=== PATIENT | female | born 1940 | race African-American/Black ===

== ENCOUNTER 2018-11-27 01:15 | Inpatient (IN) | payer BC, OTHER ==
[2018-11-27 01:21] VITALS: BMI 21.5
--- NOTE | 2018-11-27 01:27 | PDOC ---
History of Present Illness - General Chief Complaint: Injury Stated Complaint: FALL Time Seen by Provider: 11/27/18 01:18 - History of Present Illness Initial Comments: 11/27/18 01:38 The patient is a 78 year old female with a history of HTN who presents for evaluation following a fall of unclear etiology. The patient reports that she was getting up to go to the bathroom when she fell and struck her head on the tile floor. She reports questionable LOC and states that she was having difficulty getting up from the fall due to pain in her left shoulder. She otherwise denies fevers, chills, SOB, chest pain, nausea, vomiting, abdominal pain, numbness, tingling, weakness, or changes with urination or bowel movements. Past History - Past Medical History Allergies/Adverse Reactions: Allergies Allergy/AdvReac Type Severity Reaction Status Date / Time No Known Allergies Allergy Verified 11/27/18 01:21 COPD: No - Immunization History Immunization Up to Date: Yes - Suicide/Smoking/Psychosocial Hx Smoking History: Never smoked Drug/Substance Use Hx: No Review of Systems - Review of Systems Comments:: 11/27/18 01:40 Constitutional: No fevers, chills, fatigue, malaise HEENT: Head Trauma. No Rhinorrhea, nasal congestion, visual changes Cardiovascular: No chest pain, syncope, palpitations, lightheadedness Respiratory: No Cough, SOB, Hemoptysis, Gastrointestinal: No Abdominal pain, Nausea, Vomiting, Constipation, Diarrhea, Melena Genitourinary: No Dysuria, Frequency, Urgency, Hesitancy, Hematuria, Flank pain Musculoskeletal: Left shoulder pain. No Myalgia, arthralgia Skin: No rashes, itching, bruising, pallor Neurologic: No Headache, Dizziness, Numbness, Weakness, or Tingling Psychiatric: No Hallucinations. No SI or HI *Physical Exam - Vital Signs Last Vital Signs Temp Pulse Resp BP Pulse Ox 108 H 17 158/90 98 11/27/18 01:20 11/27/18 01:20 11/27/18 01:20 11/27/18 01:20 - Physical Exam Comments: 11/27/18 01:41 General Appearance: Nourished. No Apparent Distress HEENT: EOMI, POPPY. No Pharyngeal Erythema, Tonsillar Exudate, Tonsillar Erythema Neck: No Cervical Lymphadenopathy or C-spine Tenderness. Full ROM. Respiratory/Chest: Lungs Clear, Normal Breath Sounds. No Crackles, Rales, Rhonchi, Wheezing Cardiovascular: Regular Rhythm, Regular Rate. No Murmur, Gallops, Rubs Gastrointestinal/Abdominal: Normal Bowel Sounds, Soft. No Guarding, Rebound, Tenderness Musculoskeletal: No CVA Tenderness Extremity: Normal Capillary Refill. Full ROM of the left shoulder. 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 Normal Finger to Nose and Heel to Salazar Heart Score/ECG Review #1 ECG reviewed & interpreted by me at: 03:34 General ECG Interpretation: Normal Rate, Normal Intervals, No acute ischemic changes Compared to previous ECG there are: Previous ECG unavail 11/27/18 03:34 Atrial Fibrillation with premature ventricular complexes No ST changes. HR 75 QTc 446 ED Treatment Course - LABORATORY CBC & Chemistry Diagram: 11/27/18 02:20 11/27/18 02:20 Medical Decision Making - Medical Decision Making 11/27/18 01:42 The patient is a 78 year old female with a history of HTN who presents for evaluation following a fall. Differential includes but is not limited to: Intracranial process, Cardiac, Infectious, Metabolic Derangement. The patient appears clinically well on exam. Given the patient's history and physical exam , we will obtain a cbc, cmp, troponin, ekg, UA, head and neck CT to evaluate further. We will continue to monitor and reassess while here in the ED. 11/27/18 03:49 CBC, CMP, Troponin are unremarkable. EKG demonstrates new onset afib. Head and C-spine CT were unremarkable as preliminarily read by our zoning engineer radiologist. Given the patient's head trauma we will hold off on anti- coagulation at this time. Given the patient's syncopal episode resulting in fall and new onset afib, she will require admission for further monitoring. We discussed the case with Dr. Pimentel who accepted the patient for admission. We will continue to monitor and reassess while here in the ED. The patient requests that her neurosurgeon who performed her spinal surgery at [facility] be contacted as well regarding her care. *DC/Admit/Observation/Transfer Diagnosis at time of Disposition: Afib Qualifiers: Atrial fibrillation type: unspecified Qualified Code(s): I48.91 - Unspecified atrial fibrillation Syncope Qualifiers: Syncope type: unspecified Qualified Code(s): R55 - Syncope and collapse - Discharge Dispostion Condition at time of disposition: Stable Decision to Admit order: Yes - Referrals - Patient Instructions - Post Discharge Activity
[2018-11-27] MEDS ORDERED: morphine CARPU-JECT 2 MG/1 ML DISP.SYRIN IVPUSH ONE (01:38)
--- NOTE | 2018-11-27 01:42 | PDOC ---
Attending Attestation - HPI HPI: 11/27/18 01:43 The patient is a 78 year old female, with a significant past medical history of HTN, who presents to the emergency department via EMS from [address] [place] [address] s/p fall. Patient notes to have fallen forward by unknown mechanism and was too weak to ambulate s/p fall prompting her arrival to the ED. She denies recent fevers, chills, or dizziness. She denies recent nausea, vomit , diarrhea or constipation. She denies recent dysuria, frequency, urgency or hematuria. She denies recent chest pain or shortness of breath. Allergies: NKDA Social history: Resident at [address] [place] [address]. - Physicial Exam PE: 11/27/18 01:49 GENERAL: Awake, alert, and fully oriented, in no acute distress HEAD: No signs of trauma EYES: PERRLA, EOMI, sclera anicteric, conjunctiva clear ENT: Auricles normal inspection, hearing grossly normal, nares patent, oropharynx clear without exudates. Moist mucosa NECK: Normal ROM, supple, no lymphadenopathy, JVD, or masses LUNGS: Breath sounds equal, clear to auscultation bilaterally. No wheezes, and no crackles HEART: Regular rate and rhythm, normal S1 and S2, no murmurs, rubs or gallops ABDOMEN: Soft, nontender, normoactive bowel sounds. No guarding, no rebound. No masses EXTREMITIES: +Left shoulder pain. Normal range of motion, no edema. No clubbing or cyanosis. No cords, erythema, or tenderness NEUROLOGICAL: Cranial nerves II through XII grossly intact. Normal speech SKIN: Warm, Dry, normal turgor, no rashes or lesions noted. <Leah Morton - Last Filed: 11/27/18 01:49> - Resident Resident Name: Kyler Bianchi - ED Attending Attestation I have performed the following: I have examined & evaluated the patient, The case was reviewed & discussed with the resident, I agree w/resident's findings & plan - Medical Decision Making 11/27/18 04:40 Pt comes with a fall in the assisted living facility. She is found to be in afib here. This is new onset. She is awake and alert and she is able to move about. SHe has lived at the [facility] x 3 years and she still drives around [place]. Pt states that she has no chest pain and she has no complaints. She recalls falling in the bathroom tonight. Labs normal; CPK slighrt elevation. Pt's CT scans normal: Patient Name: LEXIE OBRIEN THIS IS A PRELIMINARY REPORT FROM [facility] DATE OF SERVICE: 2018-11-27 02:39:51 IMAGES: 164 EXAM: HEAD CT WITHOUT CONTRAST HISTORY: Fall. Head trauma. COMPARISON: None. FINDINGS: Involutional changes. No acute intracranial abnormality. No hemorrhage. No visible infarct or mass. Osseous structures are intact. Impression: Chronic changes. No acute abnormality. No hemorrhage Patient Name: LEXIE OBRIEN THIS IS A PRELIMINARY REPORT FROM [facility] DATE OF SERVICE: 2018-11-27 02:34:09 IMAGES: 432 EXAM: CERVICAL SPINE CT W/O CONTR HISTORY: Patient fell COMPARISON: None. FINDINGS: Prior posterior fusion C3 through C6. There is moderate loss of height/compression of the 6 vertebral body. Slight loss of height anterior C5 vertebral body. It is possible that it is chronic but still should correlate with pain in this area. If prior scans can be obtained for comparison, it would help to confirm that the loss of height is stable and not acute. No other cervical spine fracture or malalignment. 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 Impression: Status post multilevel posterior cervical fusion. Loss of height of C6 vertebral body and to a lesser degree C5 vertebral body which may be chronic but is of indeterminate age. Recommendations as above. No other cervical spine fracture or malalignment. 11/27/18 06:37 Pt will be admitted for syncope as well as new onset afib. <Suzanne Suresh - Last Filed: 11/27/18 06:38> Attestations - Attestations 11/27/18 01:46 Documentation prepared by Leah Morton, acting as medical equipment technician for Suzanne Suresh MD. <Leah Morton - Last Filed: 11/27/18 01:49>
[2018-11-27] MEDS ORDERED: MORPHINE SULFATE 2 MG/ML VIAL ONE (02:11)
[2018-11-27 02:28] LABS: BASO % 0.2 % (0-2.0); EOS % 0.2 % (0-4.5); HEMATOCRIT 40.6 % (32.4-45.2); HEMOGLOBIN 13.6 GM/dL (10.7-15.3); LYMPH % 8.2 % (8-40); MCH 30.2 pg (25.7-33.7); MCHC 33.5 g/dl (32.0-36.0); MEAN CELL VOLUME 90.2 fl (80-96); MEAN PLT VOLUME 7.9 fl (7.5-11.1); MONO % 5.1 % (3.8-10.2); NEUT % 86.3 % (42.8-82.8); PLATELET COUNT 196 K/MM3 (134-434); RBC 4.51 M/mm3 (3.60-5.2); RDW 13.7 % (11.6-15.6); WHITE BLOOD COUNT 6.1 K/mm3 (4.0-10.0)
[2018-11-27 03:10] LABS: ALBUMIN 3.8 g/dl (3.4-5.0); ALK PHOS 125 U/L (45-117); ANION GAP 6 MMOL/L (8-16); BLOOD UREA NITROGEN 12 mg/dL (7-18); CALCIUM 10.4 mg/dL (8.5-10.1); CHLORIDE 111 mmol/L (98-107); CO2 24 mmol/L (21-32); CREATININE 0.6 mg/dL (0.55-1.3); GLUCOSE,RANDOM 92 mg/dL (74-106); SGOT/AST 23 U/L (15-37); SGPT/ALT 21 U/L (13-61); SODIUM 141 mmol/L (136-145)
[2018-11-27] MEDS ORDERED: SODIUM CHLORIDE 250 ML IV STA (04:40)
--- NOTE | 2018-11-27 09:39 | CON.NEURO ---
Consult - History of Present Illness History of Present Illness: 78 year old female, with a significant past medical history of HTN, who presents to the emergency department via EMS from [facility] s/p fall. Patient notes to have fallen forward by unknown mechanism and was too weak to ambulate s /p fall prompting her arrival to the ED. She denies recent fevers, chills, or dizziness. She denies recent nausea, vomit , diarrhea or constipation. She denies recent dysuria, frequency, urgency or hematuria. She denies recent chest pain or shortness of breath. she notes left sided wqeakness and imbalance since yesterday ( unclear time of onset) CT HD (-) found to have new onset AFIB - Smoking History Smoking history: Never smoked Home Medications - Allergies Allergies/Adverse Reactions: Allergies Allergy/AdvReac Type Severity Reaction Status Date / Time No Known Allergies Allergy Verified 11/27/18 01:21 - Home Medications Home Medications: Ambulatory Orders Losartan Potassium [Cozaar -] 50 mg PO DAILY 11/27/18 Physical Exam-Neuro Vital Signs: Vital Signs Temperature 98.9 F 11/27/18 06:02 Pulse Rate 88 11/27/18 06:02 Respiratory Rate 20 11/27/18 03:55 Blood Pressure 144/77 11/27/18 06:02 O2 Sat by Pulse Oximetry (%) 96 11/27/18 06:02 Constitutional: Yes: Well Nourished, No Distress, Calm Neck: Yes: WNL, Supple, Trachea Midline, Tenderness Cardiovascular: Yes: WNL, Regular Rate and Rhythm Respiratory: Yes: WNL, Regular, CTA Bilaterally Gastrointestinal: Yes: WNL, Normal Bowel Sounds Renal/: Yes: WNL Musculoskeletal: Yes: WNL Psychiatric: Yes: WNL, Alert, Oriented Labs: CBC, BMP 11/27/18 02:20 11/27/18 02:20 - Neuro Exam Level Of Consciousness: Yes: Alert (Awake, Alert, EOMI, LEft facial, mild LUE drift, no evidence of appendicular ataxia , no left leg drift , INC tone LEft leg and upgoing plantar L , gait not tested in ER ), Oriented to Person, Oriented to Place, Oriented to Time Speech: WNL Problem List - Problems (1) Afib Code(s): I48.91 - UNSPECIFIED ATRIAL FIBRILLATION Qualifiers: Atrial fibrillation type: unspecified Qualified Code(s): I48.91 - Unspecified atrial fibrillation (2) Syncope Code(s): R55 - SYNCOPE AND COLLAPSE Qualifiers: Syncope type: unspecified Qualified Code(s): R55 - Syncope and collapse (3) Hemiplegia affecting left nondominant side Code(s): G81.94 - HEMIPLEGIA, UNSPECIFIED AFFECTING LEFT NONDOMINANT SIDE Assessment/Plan 78 year old female, with a significant past medical history of HTN, HX of cervical spine surgery 3 years ago, who presents to the emergency department via EMS from [address] [place] [address] s/p fall. Patient notes to have fallen forward by unknown mechanism and was too weak to ambulate s/p fall prompting her arrival to the ED. She denies recent fevers, chills, or dizziness. She denies recent nausea, vomit , diarrhea or constipation. She denies recent dysuria, frequency, urgency or hematuria. She denies recent chest pain or shortness of breath. CT HD (-) found to have new onset AFIB AP : S/p fall, with new onset imbalance and left sided weakness, (F/A/Leg) suspicious for new R sided small vessel event found to have new onset AFIB check MRI BRAIN , DOPPLERS, FU CARD , ECHO ; CHADS VASC score of 4, will discuss need for AC thereafter REHAB will FU DR GALINDO
--- NOTE | 2018-11-27 09:43 | CON.CARD ---
Consult Consult Specialty:: cardio - History of Present Illness Chief Complaint: fall History of Present Illness: 78 F here with fall. pt with clear recollection of events. went to bathroom, was sitting on toilet when fell to her right side and banged R side of face. felt sudden loss of balance sensation. denies feeling LH/presyncope. denies LOC. afib noted on ER denies palpitations, chest pressure/pain, sob. fell in 2016--no falls since she says denies GIB or other bleeding or recent PUD PMH: HTN s/p spinal stenosis surgery 2016 - Smoking History Smoking history: Never smoked Home Medications - Allergies Allergies/Adverse Reactions: Allergies Allergy/AdvReac Type Severity Reaction Status Date / Time No Known Allergies Allergy Verified 11/27/18 01:21 - Home Medications Home Medications: Ambulatory Orders Losartan Potassium [Cozaar -] 50 mg PO DAILY 11/27/18 Family Disease History - Family Disease History Family History: Denies (no known cmp) Review of Systems - Review of Systems Constitutional: denies: Chills, Fever Eyes: denies: Eye Pain HENT: denies: Nasal Congestion Neck: denies: Stiffness Cardiovascular: denies: Palpitations Respiratory: denies: Orthopnea, PND Gastrointestinal: denies: Diarrhea, Rectal Bleeding Genitourinary: denies: Burning, Hematuria Musculoskeletal: denies: Muscle Pain Integumentary: denies: Rash Neurological: denies: Numbness, Seizure, Syncope Endocrine: denies: Excessive Sweating Hematology/Lymphatic: denies: Excessive Bleeding Vital Signs: Vital Signs Temperature 98.9 F 11/27/18 06:02 Pulse Rate 88 11/27/18 06:02 Respiratory Rate 20 11/27/18 03:55 Blood Pressure 144/77 11/27/18 06:02 O2 Sat by Pulse Oximetry (%) 96 11/27/18 06:02 Constitutional: Yes: Well Nourished, No Distress Eyes: No: Sclera Icterus HENT: No: Nasal Congestion Neck: No: Decreased ROM Respiratory: Yes: CTA Bilaterally. No: Accessory Muscle Use, Rales, Wheezes Gastrointestinal: Yes: Normal Bowel Sounds. No: Distention, Hepatomegaly, Palpable Mass, Tenderness Cardiovascular: Yes: Pulse Irregular JVD: No Carotid Bruit: No PMI: Non-Displaced Heart Sounds: Yes: S1, S2. No: Gallop Murmur: No: Systolic Murmur, Diastolic Murmur Musculoskeletal: Yes: Other (No kyphosis) Extremities: No: Cool, Cyanosis Edema: No Peripheral Pulses: 2+ Left Carotid, 2+ Right Carotid, 2+ Left Doralis Pedis, 2+ Right Dorsalis Pedis Integumentary: No: Jaundice Neurological: Yes: Alert, Oriented (x3) Psychiatric: No: Agitated - Other Data Labs, Other Data: CBC, BMP 11/27/18 02:20 11/27/18 02:20 Troponin, BNP 11/27/18 02:20 Troponin I 0.02 Troponin, BNP 11/27/18 02:20 Troponin I 0.02 Laboratory Tests 11/27/18 11/27/18 11/27/18 02:20 02:20 02:20 WBC 6.1 Hgb 13.6 Plt Count 196 Sodium 141 Potassium 4.0 Carbon Dioxide 24 BUN 12 Creatinine 0.6 AST 23 ALT 21 Creatine Kinase 342 H Troponin I 0.02 TSH 1.18 Assessment/Plan ECG: atrial flutter (HR 70s), PVC. NSTWAs. ? old septal LA. no old fall: -CT head unrevealing, seen by neuro--concern on exam for L hemiparesis -pt mechanism of losing balance and falling to right not likely to represent arrhythmia or other acute CV etiology of fall -no recent falls otherwise -await neuro rec.s pending review of imaging--including BP target Aflutter: -new dx -rate controlled without meds--monitor tele -CHADS VASC 4 (vs 6, if new stroke confirmed). she is candidate for AC given risk of CVA is > risk of bleeding in her, in light of no recent high falls risk per pt. -deferring type and timing of AC to neuro, pending their review of imaging (d/w' d dr russo in ER, who agrees with plan) -check echo HTN: -bp controlled -bp targets per neuro
--- NOTE | 2018-11-27 12:18 | ECHO ---
Name: LEXIE OBRIEN Exam:Adult Echocardiogram Study Date: 11/27/2018 11:01 AM Age: 78 yrs Reason For Study: A-FLUTTER Height: 70 in Weight: 150 lb BSA: 1.8 m2 MMode/2D Measurements & Calculations IVSd: 1.4 cm Ao root diam: 2.8 cm LVIDd: 3.5 cm LA dimension: 3.1 cm LVIDs: 2.1 cm LVPWd: 1.0 cm EDV(Teich): 49.2 ml LVOT diam: 1.9 cm ESV(Teich): 14.6 ml Doppler Measurements & Calculations Ao V2 max: 146.6 cm/sec LV V1 max P.4 mmHg Ao max P.6 mmHg LV V1 max: 92.8 cm/sec EDWIGE(V,D): 1.8 cm2 TR max trey: 245.7 cm/sec Med Peak E' Trey: 6.1 cm/sec TR max P.1 mmHg Lat Peak E' Trey: 7.5 cm/sec Mobile echodensity in LA appendage LA mass Procedure A complete two-dimensional transthoracic echocardiogram was performed (2D, M-mode, Doppler and color flow Doppler). Left Ventricle The left ventricle is normal in size. 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 Le ft ventricular systolic function is normal. Ejection Fraction = >70%. No regional wall motion abnormalit ies noted. Right Ventricle The right ventricle is normal size. The right ventricular systolic function is normal. Atria The left atrial size is normal. Large mobile echodensity is seen in the LA appendage suggests thrombu s. Clinical correlation is recommended. Recommend FRANSICO. Right atrial size is normal. Mitral Valve There is mild mitral annular calcification. There is mild mitral regurgitation. Tricuspid Valve The tricuspid valve is normal in structure and function. There is mild tricuspid regurgitation. Pulmo nary artery systolic pressure is at least 27 mmHg assuming RA pressure of 3 mmHg. Aortic Valve There is mild aortic sclerosis.;. No aortic regurgitation is present. Pulmonic Valve The pulmonic valve is not well visualized. Great Vessels The aortic root is normal size. Pericardium/Pleura There is no pericardial effusion. Interpretation Summary The left ventricle is normal in size. 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 No regional wall motion abnormalities noted. Ejection Fraction = >70%. The right ventricular systolic function is normal. The left atrial size is normal. Large mobile echodensity is seen in the LA appendage suggests thrombus. Clinical correlation is recom mended. Recommend FRANSICO Right atrial size is normal. There is mild mitral annular calcification. There is mild mitral regurgitation. There is mild tricuspid regurgitation. Pulmonary artery systolic pressure is at least 27 mmHg assuming RA pressure of 3 mmHg There is mild aortic sclerosis. There is no pericardial effusion. Previous study is not available for comparison Mobile echodensity in LA appendage LA mass Milton Montgomery MD 11/27/2018 12:17 PM
--- NOTE | 2018-11-27 14:19 | HP ---
Admitting History and Physical - Admission Chief Complaint: fell / left sided weakness History of Present Illness: The patient is a 78 year old female with a history of HTN who presents for evaluation following a fall of unclear etiology. The patient reports that she was getting up to go to the bathroom when she fell and struck her head on the tile floor. She reports she felt left sided weakness , and is not sure who long that has been there ... "maybe longer than today". questionable LOC ?? c/ o pain and weakness in her left shoulder- not related to fall?. She otherwise denies fevers, chills, SOB, chest pain, nausea, vomiting, abdominal pain, numbness, tingling, weakness, or changes with urination or bowel movements. History Source: Patient, Medical Record Limitations to Obtaining History: Poor Historian - Past Medical History Cardiovascular: Yes: HTN. No: AFIB Reproductive: Yes: Postmenopausal Musculoskeletal: Yes: Chronic low back pain, Other (report recent onset of some left sidede weakness (unable to provide details)) - Past Surgical History Past Surgical History: Yes: Laminectomy (multiple levels (thoracic-sacral scar)) - Smoking History Smoking history: Never smoked - Alcohol/Substance Use History of Substance Use: reports: None - Social History Usual Living Arrangement: Yes: Alone ADL: Support Services History of Recent Travel: No Home Medications - Allergies Allergies/Adverse Reactions: Allergies Allergy/AdvReac Type Severity Reaction Status Date / Time No Known Allergies Allergy Verified 11/27/18 01:21 - Home Medications Home Medications: Ambulatory Orders Losartan Potassium [Cozaar -] 50 mg PO DAILY 11/27/18 Review of Systems - Review of Systems Constitutional: reports: Weakness ("some left sided weakness" - however both shoulders "hurt " and are "weak"). denies: Chills, Fever Eyes: reports: No Symptoms HENT: reports: No Symptoms Neck: reports: No Symptoms Cardiovascular: reports: No Symptoms Respiratory: reports: No Symptoms Gastrointestinal: reports: No Symptoms Genitourinary: reports: No Symptoms Breasts: reports: No Symptoms Reported Musculoskeletal: reports: Joint Pain, Muscle Weakness Integumentary: reports: No Symptoms Neurological: reports: Pre-Existing Deficit, Syncope (??), Weakness Endocrine: reports: No Symptoms Hematology/Lymphatic: reports: No Symptoms Psychiatric: reports: No Symptoms Physical Examination Vital Signs: Vital Signs Temperature 98.9 F 11/27/18 06:02 Pulse Rate 88 11/27/18 06:02 Respiratory Rate 20 11/27/18 03:55 Blood Pressure 144/77 11/27/18 06:02 O2 Sat by Pulse Oximetry (%) 96 11/27/18 06:02 Constitutional: Yes: Well Nourished, No Distress, Calm, Other (slow speech) Eyes: Yes: Conjunctiva Clear, EOM Intact HENT: Yes: Atraumatic, Normocephalic. No: Drooling Neck: Yes: Supple, Trachea Midline Cardiovascular: Yes: Pulse Irregular Respiratory: Yes: Regular, CTA Bilaterally Gastrointestinal: Yes: Normal Bowel Sounds, Soft ...Rectal Exam: Yes: Deferred Breast(s): Yes: WNL Musculoskeletal: Yes: Muscle Weakness (left) Edema: No Peripheral Pulses WNL: Yes Integumentary: Yes: WNL Psychiatric: Yes: WNL Labs: CBC, BMP 11/27/18 02:20 11/27/18 02:20 Problem List - Problems (1) Afib Assessment/Plan: new onset ? - no prior hx patient reports has never heard the term associated with her care rate control a/c pending neuro work up to determine risk of a/c after head trauma Cardiology consult Dr Dailey Echo ordered awaiting telemetry bed Code(s): I48.91 - UNSPECIFIED ATRIAL FIBRILLATION Qualifiers: Atrial fibrillation type: unspecified Qualified Code(s): I48.91 - Unspecified atrial fibrillation (2) Fall at home Assessment/Plan: possibly 2/2 to arrhythmia - new onset a fib ?? rate Code(s): W19.XXXA - UNSPECIFIED FALL, INITIAL ENCOUNTER; Y92.009 - UNSP PLACE IN [facility] (3) HTN (hypertension) Assessment/Plan: trend BP treat as needed Code(s): I10 - ESSENTIAL (PRIMARY) HYPERTENSION (4) HTN (hypertension) Code(s): I10 - ESSENTIAL (PRIMARY) HYPERTENSION (5) Hemiplegia affecting left nondominant side Code(s): G81.94 - HEMIPLEGIA, UNSPECIFIED AFFECTING LEFT NONDOMINANT SIDE (6) Syncope Code(s): R55 - SYNCOPE AND COLLAPSE Qualifiers: Syncope type: unspecified Qualified Code(s): R55 - Syncope and collapse
--- NOTE | 2018-11-27 15:30 | EKG ---
Test Reason : Blood Pressure : / mmHG Vent. Rate : 075 BPM Atrial Rate : 117 BPM P-R Int : 000 ms QRS Dur : 080 ms QT Int : 400 ms P-R-T Axes : 000 -09 003 degrees QTc Int : 446 ms ATRIAL FIBRILLATION WITH PREMATURE VENTRICULAR OR ABERRANTLY CONDUCTED COMPLEXES MINIMAL VOLTAGE CRITERIA FOR LVH, MAY BE NORMAL VARIANT ABNORMAL ECG NO PREVIOUS ECGS AVAILABLE Confirmed by TITUS DORADO MD ([id number]) on 11/27/2018 3:30:13 PM Referred By: Confirmed By:TITUS DORADO MD
[2018-11-27] MEDS ORDERED: HEPARIN NA (PORCINE) 5,000 UNITS/ML 1ML VIAL IVPUSH PRN ×2 (16:50)
[2018-11-27] MEDS ORDERED: HEPARIN - 25,000 UNIT in SODIUM CHLORIDE 495 ML IV SCH (17:00)
[2018-11-27] MEDS ORDERED: HEPARIN INFUSION - 25,000 UNITS/500 ML INFUS.BAG IVPB ONE (17:28)
[2018-11-27 17:40] VITALS: PULSE 90
--- NOTE | 2018-11-27 21:21 | PN ---
Progress Note (short form) - Note Progress Note: Case discussed with Dr Dailey earlier in the day Patient to be transferred To [facility] at [place]. The accepting Surgeon is Dr Dalia Dailey has discussed the case with accepting MD and made arrangements for transfer order for transfer placed patient to be transferred to [facility] Problem List - Problems (1) Afib Code(s): I48.91 - UNSPECIFIED ATRIAL FIBRILLATION Qualifiers: Atrial fibrillation type: unspecified Qualified Code(s): I48.91 - Unspecified atrial fibrillation (2) Fall at home Code(s): W19.XXXA - UNSPECIFIED FALL, INITIAL ENCOUNTER; Y92.009 - UNSP PLACE IN UNSP NON-INSTITUT (PRIVATE) RESIDENCE PLACE (3) HTN (hypertension) Code(s): I10 - ESSENTIAL (PRIMARY) HYPERTENSION (4) HTN (hypertension) Code(s): I10 - ESSENTIAL (PRIMARY) HYPERTENSION (5) Hemiplegia affecting left nondominant side Code(s): G81.94 - HEMIPLEGIA, UNSPECIFIED AFFECTING LEFT NONDOMINANT SIDE (6) Syncope Code(s): R55 - SYNCOPE AND COLLAPSE Qualifiers: Syncope type: unspecified Qualified Code(s): R55 - Syncope and collapse
[2018-11-27 21:44] VITALS: BP 142/90; TEMP 100
--- NOTE | 2018-11-27 21:47 | PDOC ---
*Physical Exam - Vital Signs Last Vital Signs Temp Pulse Resp BP Pulse Ox 100.0 F H 90 16 142/90 97 11/27/18 21:30 11/27/18 21:30 11/27/18 21:30 11/27/18 21:30 11/27/18 21:30 ED Treatment Course - LABORATORY CBC & Chemistry Diagram: 11/27/18 02:20 11/27/18 02:20 - ADDITIONAL ORDERS Additional order review: 11/27/18 02:20 RBC 4.51 MCV 90.2 MCHC 33.5 RDW 13.7 MPV 7.9 Neutrophils % 86.3 H Lymphocytes % 8.2 Monocytes % 5.1 Eosinophils % 0.2 Basophils % 0.2 - Medications Given in the ED: ED Medications Discontinued Medications Generic Name Dose Route Start Last Admin Trade Name Freq PRN Reason Stop Dose Admin Sodium Chloride 250 mls @ 250 mls/hr 11/27/18 04:40 11/27/18 04:55 Normal Saline - IV 11/27/18 05:39 250 mls/hr ASDIR STA Administration Morphine Sulfate 2 mg 11/27/18 01:38 11/27/18 02:28 Morphine Injection - IVPUSH 11/27/18 01:39 2 mg ONCE ONE Administration *DC/Admit/Observation/Transfer Diagnosis at time of Disposition: Left atrial mass Afib Qualifiers: Atrial fibrillation type: unspecified Qualified Code(s): I48.91 - Unspecified atrial fibrillation Syncope Qualifiers: Syncope type: unspecified Qualified Code(s): R55 - Syncope and collapse - Discharge Dispostion Disposition: TRANSFER ACUTE CARE/OTHER HOSP Condition at time of disposition: Stable - Referrals - Patient Instructions - Post Discharge Activity - Transfer to Acute Care Facility Receiving Facility: [place] (Cardiology floor @ [facility])
--- NOTE | 2018-11-28 09:05 | PN ---
Progress Note (short form) - Note Progress Note: s: Current Medications Heparin Sodium (Porcine) (Heparin -) 1,000 unit IVPUSH PRN PRN PRN Reason: Heparin Heparin Sodium (Porcine) (Heparin -) 5,000 unit IVPUSH PRN PRN PRN Reason: Heparin Heparin Sodium (Porcine) 25, (000 unit/ Sodium Chloride) 500 mls @ 20 mls/hr IV TITR ERYN; Protocol Last Admin: 11/27/18 17:34 Dose: 1,000 unit/hr, 20 mls/hr Losartan Potassium (Cozaar -) 50 mg PO DAILY [facility] Vital Signs: Vital Signs Period Temp Pulse Resp BP Sys/Gandhi Pulse Ox Last 24 Hr 100.0 F 90-90 16-16 114-142/50-90 97-99 Constitutional: Yes: Well Nourished, No Distress Eyes: No: Sclera Icterus HENT: No: Nasal Congestion Neck: No: Decreased ROM Respiratory: Yes: CTA Bilaterally. No: Accessory Muscle Use, Rales, Wheezes Gastrointestinal: Yes: Normal Bowel Sounds. No: Distention, Hepatomegaly, Palpable Mass, Tenderness Cardiovascular: Yes: Pulse Irregular JVD: No Carotid Bruit: No PMI: Non-Displaced Heart Sounds: Yes: S1, S2. No: Gallop Murmur: No: Systolic Murmur, Diastolic Murmur Musculoskeletal: Yes: Other (No kyphosis) Extremities: No: Cool, Cyanosis Edema: No Peripheral Pulses: 2+ Left Carotid, 2+ Right Carotid, 2+ Left Doralis Pedis, 2+ Right Dorsalis Pedis Integumentary: No: Jaundice Neurological: Yes: Alert, Oriented (x3) Psychiatric: No: Agitated Assessment/Plan ECG: atrial flutter (HR 70s), PVC. NSTWAs. ? old septal OH. 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 Dalia Smallwood accepting - MRI head mult areas of infarct c/w showered event - neuro following - on heparin gtt fall: -CT head unrevealing, seen by neuro--concern on exam for L hemiparesis -mult areas of MRI head of infarct as above -no recent falls otherwise - neuro following Aflutter: -new dx -rate controlled without meds--monitor tele -CHADS VASC 4 (vs 6, if new stroke confirmed). she is candidate for AC given risk of CVA is > risk of bleeding in her, in light of no recent high falls risk per pt. -on heparin gtt HTN: -bp controlled -bp targets per neuro
[2018-11-28] MEDS ORDERED: LOSARTAN POTASSIUM 50 MG TABLET (FP) PO SCH (10:00)
== END 2018-11-27 22:45 | disposition short-term general hospital (02) | DRG 302 ==
LOC: JER 01:15 → JERBED 03:46 → OBSVTOIN 14:54
PROVIDERS: ADMIT Family Medicine; ATTEND Family Medicine
DX: I51.89 Other ill-defined heart diseases (principal); I63.442 Cerebral infarction due to embolism of left cerebellar artery; G81.94 Hemiplegia, unspecified affecting left nondominant side; I48.92 Unspecified atrial flutter; I51.3 Intracardiac thrombosis, not elsewhere classified; R55 Syncope and collapse; I48.91 Unspecified atrial fibrillation; I10 Essential (primary) hypertension; M54.5 Low back pain; W19.XXXA Unspecified fall, initial encounter; Y92.009 Unspecified place in unspecified non-institutional (private) residence as the place of occurrence of the external cause
CPT/HCPCS: 36415; 70450-TC; 70544-TC; 70547-TC; 70551-TC; 72125-TC; 73030-TC-LT-FY; 80053; 82550; 82553; 84443; 84484; 85025; 93005; 93010; 93306-TC; 99284-25; G0378; J1644

== ENCOUNTER 2020-08-12 13:00 | Inpatient (IN) | payer BC, OTHER ==
[2020-08-12] MEDS ORDERED: ACETAMINOPHEN 500 MG TABLET (FP) PO ONE (14:06)
[2020-08-12] MEDS ORDERED: LIDOCAINE 5% TOPICAL PATCH TP ONE (14:06)
[2020-08-12] MEDS ORDERED: ACETAMINOPHEN 325 MG TABLET (FP) ONE (14:13)
[2020-08-12] MEDS ORDERED: LIDOCAINE 5% TOPICAL PATCH ONE (14:14)
[2020-08-12 14:55] LABS: BASO % 0.7 % (0-2.0); EOS % 4.7 % (0-4.5); HEMATOCRIT 33.4 % (32.4-45.2); HEMOGLOBIN 10.5 GM/dL (10.7-15.3); LYMPH % 24.1 % (8-40); MCH 26.5 pg (25.7-33.7); MCHC 31.4 g/dl (32.0-36.0); MEAN CELL VOLUME 84.5 fl (80-96); MONO % 11.1 % (3.8-10.2); NEUT % 59.4 % (42.8-82.8); PLATELET COUNT 220 K/MM3 (134-434); RBC 3.96 M/mm3 (3.60-5.2); RDW 16.4 % (11.6-15.6); WHITE BLOOD COUNT 3.7 K/mm3 (4.0-10.0)
[2020-08-12 15:13] LABS: BLOOD UREA NITROGEN 12.9 mg/dL (7-18); CALCIUM 10.6 mg/dL (8.5-10.1)
[2020-08-12 15:14] LABS: ALBUMIN 3.6 g/dl (3.4-5.0)
[2020-08-12 15:17] LABS: CREATININE 0.7 mg/dL (0.55-1.3)
[2020-08-12 15:18] LABS: BILIRUBIN,TOTAL 0.9 mg/dL (0.2-1); TOT PROT 6.7 g/dl (6.4-8.2)
[2020-08-12 15:29] LABS: INR 2.09 (0.83-1.09); PROTHROMBIN TIME (PATIENT) 24.8 SEC (9.7-13.0)
[2020-08-12 15:31] LABS: ACTIVATED PTT 33.8 SECONDS (25.2-36.5)
[2020-08-12] MEDS ORDERED: FUROSEMIDE 40 MG/4 ML INJECTABLE VIAL IVPUSH ONE (15:52)
[2020-08-12] MEDS ORDERED: FUROSEMIDE 40 MG/4 ML INJECTABLE VIAL ONE (18:01)
[2020-08-12] MEDS ORDERED: ENOXAPARIN NA (PORCINE) 80 MG/0.8 ML DISP.SYRIN SQ ONE (20:22)
[2020-08-12] MEDS: ENOXAPARIN NA (PORCINE) 80 MG/0.8 ML DISP.SYRIN SQ SCH (20:40)
[2020-08-12] MEDS ORDERED: LIDOCAINE PATCH REMOVAL MC ONE (22:00)
[2020-08-13] MEDS ORDERED: ACETAMINOPHEN 325 MG TABLET (FP) ONE (01:01)
[2020-08-13] MEDS: ACETAMINOPHEN 325 MG TABLET (FP) PO PRN ×2 (01:11→23:25)
[2020-08-13] MEDS ORDERED: MINERAL OIL/PETROLAT/WATER TOPICAL CREAM 454 GM JAR TP PRN (10:37)
[2020-08-13] MEDS ORDERED: LOSARTAN POTASSIUM 50 MG TABLET ONE (11:24)
[2020-08-13] MEDS ORDERED: ENOXAPARIN NA (PORCINE) 80 MG/0.8 ML DISP.SYRIN SQ ONE (11:25)
[2020-08-13] MEDS: ENOXAPARIN NA (PORCINE) 80 MG/0.8 ML DISP.SYRIN SQ SCH ×2 (11:47→23:25)
[2020-08-13] MEDS: LOSARTAN POTASSIUM 50 MG TABLET PO SCH (11:47)
[2020-08-13 11:59] LABS: BASO % 0.9 % (0-2.0); HEMATOCRIT 35.6 % (32.4-45.2); LYMPH % 30.9 % (8-40); MCH 26.5 pg (25.7-33.7); MCHC 30.9 g/dl (32.0-36.0); MEAN CELL VOLUME 85.6 fl (80-96); MEAN PLT VOLUME 7.8 fl (7.5-11.1); MONO % 12.4 % (3.8-10.2); NEUT % 50.8 % (42.8-82.8); PLATELET COUNT 212 K/MM3 (134-434); RBC 4.15 M/mm3 (3.60-5.2); RDW 16.6 % (11.6-15.6); WHITE BLOOD COUNT 2.8 K/mm3 (4.0-10.0)
[2020-08-13 12:22] LABS: ALBUMIN 3.7 g/dl (3.4-5.0); BLOOD UREA NITROGEN 10.8 mg/dL (7-18); CALCIUM 10.8 mg/dL (8.5-10.1)
[2020-08-13 12:25] LABS: CREATININE 0.7 mg/dL (0.55-1.3)
[2020-08-13 12:26] LABS: BILIRUBIN,TOTAL 0.8 mg/dL (0.2-1); TOT PROT 6.8 g/dl (6.4-8.2)
[2020-08-14 03:47] VITALS: BMI 22.5
[2020-08-14 07:48] LABS: BASO % 0.6 % (0-2.0); EOS % 3.6 % (0-4.5); HEMOGLOBIN 10.1 GM/dL (10.7-15.3); LYMPH % 32.6 % (8-40); MCH 26.7 pg (25.7-33.7); MCHC 31.6 g/dl (32.0-36.0); MEAN CELL VOLUME 84.3 fl (80-96); MEAN PLT VOLUME 7.9 fl (7.5-11.1); MONO % 11.6 % (3.8-10.2); NEUT % 51.6 % (42.8-82.8); PLATELET COUNT 201 K/MM3 (134-434); RDW 16.8 % (11.6-15.6); WHITE BLOOD COUNT 3.5 K/mm3 (4.0-10.0)
[2020-08-14 08:01] LABS: ALBUMIN 3.3 g/dl (3.4-5.0); CALCIUM 10.6 mg/dL (8.5-10.1)
[2020-08-14 08:02] LABS: BLOOD UREA NITROGEN 13.9 mg/dL (7-18)
[2020-08-14 08:04] LABS: CREATININE 0.6 mg/dL (0.55-1.3)
[2020-08-14 08:06] LABS: BILIRUBIN,TOTAL 0.8 mg/dL (0.2-1); TOT PROT 6.1 g/dl (6.4-8.2)
[2020-08-14] MEDS ORDERED: IRON SUCROSE INJECTION 200 MG in SODIUM CHLORIDE 90 ML IVPB ONE (10:00)
[2020-08-14] MEDS: LOSARTAN POTASSIUM 50 MG TABLET PO SCH (10:34)
[2020-08-14] MEDS: ENOXAPARIN NA (PORCINE) 80 MG/0.8 ML DISP.SYRIN SQ SCH ×2 (10:34→21:38)
[2020-08-14] MEDS: ACETAMINOPHEN 325 MG TABLET (FP) PO PRN ×2 (10:36→21:38)
[2020-08-14] MEDS: LIDOCAINE 5% TOPICAL PATCH TP SCH (10:52)
[2020-08-14] MEDS ORDERED: LIDOCAINE PATCH REMOVAL MC SCH (22:00)
[2020-08-15] MEDS: ACETAMINOPHEN 325 MG TABLET (FP) PO PRN ×2 (03:36→10:14)
[2020-08-15 06:43] LABS: HEMATOCRIT 31.1 % (32.4-45.2); HEMOGLOBIN 10.1 GM/dL (10.7-15.3); LYMPH % 57.1 % (8-40); MCH 27.3 pg (25.7-33.7); MCHC 32.4 g/dl (32.0-36.0); MEAN CELL VOLUME 84.3 fl (80-96); MEAN PLT VOLUME 7.8 fl (7.5-11.1); MONO % 42.9 % (3.8-10.2); PLATELET COUNT 189 K/MM3 (134-434); RBC 3.69 M/mm3 (3.60-5.2); RDW 16.6 % (11.6-15.6); WHITE BLOOD COUNT 3.8 K/mm3 (4.0-10.0)
[2020-08-15 07:04] LABS: CALCIUM 10.4 mg/dL (8.5-10.1)
[2020-08-15 07:05] LABS: ALBUMIN 3.2 g/dl (3.4-5.0); BLOOD UREA NITROGEN 13.6 mg/dL (7-18)
[2020-08-15 07:08] LABS: CREATININE 0.6 mg/dL (0.55-1.3)
[2020-08-15 07:09] LABS: BILIRUBIN,TOTAL 0.6 mg/dL (0.2-1)
[2020-08-15] MEDS: LIDOCAINE 5% TOPICAL PATCH TP SCH ×2 (10:15→10:22)
[2020-08-15] MEDS: LOSARTAN POTASSIUM 50 MG TABLET PO SCH (10:15)
[2020-08-15] MEDS: ENOXAPARIN NA (PORCINE) 80 MG/0.8 ML DISP.SYRIN SQ SCH (10:15)
[2020-08-15 11:17] LABS: ANISOCYTOSIS 1+; MACROCYTOSIS 1+; PLATELET ESTIMATE NORMAL
[2020-08-15 14:33] VITALS: BP 123/60; PULSE 89; TEMP 97.8
== END 2020-08-15 17:15 | disposition home or self-care (01) | DRG 312 ==
LOC: JER 13:00 → JERBED 08-13 19:28 → J4S 08-13 22:35
PROVIDERS: ADMIT Internal Medicine; ATTEND Internal Medicine
DX: R55 Syncope and collapse (principal); I69.354 Hemiplegia and hemiparesis following cerebral infarction affecting left non-dominant side; D50.0 Iron deficiency anemia secondary to blood loss (chronic); S20.20XA Contusion of thorax, unspecified, initial encounter; S30.0XXA Contusion of lower back and pelvis, initial encounter; I50.9 Heart failure, unspecified; I34.0 Nonrheumatic mitral (valve) insufficiency; I36.1 Nonrheumatic tricuspid (valve) insufficiency; W19.XXXA Unspecified fall, initial encounter; Y93.9 Activity, unspecified; Y92.008 Other place in unspecified non-institutional (private) residence as the place of occurrence of the external cause; Y99.9 Unspecified external cause status; I10 Essential (primary) hypertension
CPT/HCPCS: 36415; 70450-TC; 71045-TC-FY; 71260-TC; 72125-TC; 72128-TC; 72131-TC; 72170-TC-FY; 74177-TC; 80053; 82550; 82553; 82728; 83540; 83550; 83880; 84484; 85025; 85610; 85730; 86850; 86900; 86901; 93005; 93010; 93306-TC; 93880-TC; 97116-GP; 97161-GP; 99285-25; C9803; J1756; Q9967; U0003

== ENCOUNTER 2020-11-28 15:37 | Emergency (ER) | payer BC, OTHER ==
[2020-11-28 15:45] VITALS: BP 128/66; PULSE 99; TEMP 98.2; BMI 18.6
== END 2020-11-28 23:13 | disposition home or self-care (01) ==
LOC: JERFT 15:37 → JER 15:37 → JERFT 23:13
DX: Z76.0 Encounter for issue of repeat prescription (principal)
CPT/HCPCS: 99283-25

== ENCOUNTER 2024-08-30 17:50 | Inpatient (IN) | payer OTHER ==
[2024-08-30 18:59] VITALS: BMI 21.2
[2024-08-30] MEDS ORDERED: ACETAMINOPHEN INJECTION 100 ML ONE (19:26)
[2024-08-30] MEDS: ACETAMINOPHEN 1000 MG/100 ML BAG IVPB ONE (20:48)
[2024-08-30 20:54] LABS: BASO % 0.3 % (0-2.0); HEMATOCRIT 31.3 % (32.4-45.2); HEMOGLOBIN 9.8 GM/dL (10.7-15.3); MCH 25.1 pg (25.7-33.7); MCHC 31.2 g/dl (32.0-36.0); MEAN CELL VOLUME 80.6 fl (80-96); MEAN PLT VOLUME 7.9 fl (7.5-11.1); MONO % 5.8 % (3.8-10.2); NEUT % 81.9 % (42.8-82.8); PLATELET COUNT 275 10^3/uL (134-434); RBC 3.89 M/mm3 (3.60-5.2); RDW 16.3 % (11.6-15.6); WHITE BLOOD COUNT 7.2 K/mm3 (4.0-10.0)
[2024-08-30 21:00] LABS: INR 2.48 (0.83-1.09); PROTHROMBIN TIME (PATIENT) 27.8 SEC (9.7-13.0)
[2024-08-30 21:02] LABS: ACTIVATED PTT 36.3 SECONDS (25.2-36.5)
[2024-08-30 21:19] LABS: ALBUMIN 3.8 g/dl (3.4-5.0); CALCIUM 11.9 mg/dL (8.5-10.1)
[2024-08-30 21:20] LABS: BLOOD UREA NITROGEN 34.7 mg/dL (7-18); MAGNESIUM 2.2 mg/dL (1.8-2.4)
[2024-08-30 21:23] LABS: CREATININE 1.4 mg/dL (0.55-1.3)
[2024-08-30 21:24] LABS: BILIRUBIN,TOTAL 0.9 mg/dL (0.2-1); TOT PROT 7.2 g/dl (6.4-8.2)
[2024-08-30] MEDS: SODIUM CHLORIDE 0.9% 500 ML INFUS.BAG IV ONE (21:38)
[2024-08-31] MEDS ORDERED: DEXTROSE 5%-0.45% SALINE 1,000 ML IV SCH ×2 (01:00→01:30)
[2024-08-31] MEDS ORDERED: ASPIRIN 81 MG CHEWABLE TABLETS ONE (01:39)
[2024-08-31 01:48] LABS: EPI CELLS 28 /uL (0-25.1); HYALINE CASTS 2 /uL (0-3.1); PH,URINE 5.5 (5.0-8.0); URINE APPEARANCE CLEAR; URINE BILIRUBIN NEGATIVE (NEGATIVE); URINE COLOR YELLOW; URINE GLUCOSE (UA) NEGATIVE (NEGATIVE); URINE KETONE TRACE (NEGATIVE); URINE LEUK ESTERASE NEGATIVE (NEGATIVE); URINE NITRITE POSITIVE (NEGATIVE); URINE PROTEIN 1+ (NEGATIVE); URINE RBC 12 /uL (0-23.9); URINE UROBILINOGEN 0.2 mg/dL (0.2-1.0); URINE WBC 32 /uL (0-25.8)
[2024-08-31] MEDS: DEXTROSE 5%-0.45% SALINE 1,000 ML IV SCH (01:52)
[2024-08-31] MEDS: ASPIRIN 81 MG CHEWABLE TABLETS PO ONE (01:52)
[2024-08-31 05:54] LABS: URINE BACTERIA 9.4 /uL (0-1359)
[2024-08-31 08:25] LABS: BASO % 0.5 % (0-2.0); EOS % 0.5 % (0-4.5); HEMATOCRIT 25.2 % (32.4-45.2); HEMOGLOBIN 7.7 GM/dL (10.7-15.3); LYMPH % 14.2 % (8-40); MCH 24.9 pg (25.7-33.7); MCHC 30.4 g/dl (32.0-36.0); MEAN CELL VOLUME 81.8 fl (80-96); MEAN PLT VOLUME 8.6 fl (7.5-11.1); MONO % 6.1 % (3.8-10.2); NEUT % 78.7 % (42.8-82.8); PLATELET COUNT 220 10^3/uL (134-434); RBC 3.08 M/mm3 (3.60-5.2); RDW 16.5 % (11.6-15.6)
[2024-08-31 08:39] LABS: CHLORIDE 106 mmol/L (98-107); POTASSIUM 3.4 mmol/L (3.5-5.1); SODIUM 136 mmol/L (136-145)
[2024-08-31 08:41] LABS: ANION GAP 6 mmol/L (4-13); BLOOD UREA NITROGEN 26.8 mg/dL (7-18); CO2 24 mmol/L (21-32)
[2024-08-31 08:44] LABS: CREATININE 1.3 mg/dL (0.55-1.3)
[2024-08-31 08:50] LABS: CALCIUM 9.7 mg/dL (8.5-10.1)
[2024-08-31 08:51] LABS: GLUCOSE,RANDOM 630 mg/dL (74-106)
[2024-08-31] MEDS ORDERED: LOSARTAN POTASSIUM 50 MG TABLET ONE (09:34)
[2024-08-31] MEDS: LOSARTAN POTASSIUM 50 MG TABLET PO SCH (09:35)
[2024-08-31] MEDS: MEMANTINE HCL 5 MG TABLET (UD) PO SCH (09:35)
[2024-08-31] MEDS: AMIODARONE HCL 100 MG TABLET PO SCH (09:35)
[2024-08-31] MEDS: METOPROLOL TARTRATE 25 MG TABLET (FP) PO SCH (09:35)
[2024-08-31] MEDS: CINACALCET HCL 30 MG TAB (FP) PO SCH (09:36)
[2024-08-31] MEDS: PANTOPRAZOLE 40 MG TABLET PO SCH (09:36)
[2024-08-31] MEDS ORDERED: FUROSEMIDE 40 MG TABLET (FP) PO SCH (10:00)
[2024-08-31] MEDS ORDERED: PANTOPRAZOLE 40 MG TABLET PO SCH (10:00)
[2024-08-31] MEDS: LIDOCAINE 5% TOPICAL PATCH TP SCH (10:03)
[2024-08-31] MEDS ORDERED: LIDOCAINE 5% TOPICAL PATCH ONE (10:03)
[2024-08-31] MEDS: ACETAMINOPHEN 325 MG TABLET (FP) PO PRN (10:04)
[2024-08-31] MEDS ORDERED: ACETAMINOPHEN 325 MG TABLET (FP) ONE ×2 (10:06→18:24)
[2024-08-31] MEDS: IRON SUCROSE INJECTION 300 MG in SODIUM CHLORIDE 235 ML IVPB ONE ×2 (11:52→19:44)
[2024-08-31] MEDS: D5-1/2NS+20 MEQ KCL - 20 MEQ/1,000 ML INFUS.BAG IV SCH ×2 (11:57→14:27)
[2024-08-31] MEDS ORDERED: WARFARIN NA 5 MG TABLET ONE (18:19)
[2024-08-31] MEDS: WARFARIN NA 2.5 MG TABLET PO SCH (18:20)
[2024-08-31] MEDS: LIDOCAINE PATCH REMOVAL MC SCH (22:46)
[2024-09-01 08:23] LABS: BASO % 0.5 % (0-2.0); EOS % 1.1 % (0-4.5); HEMATOCRIT 27.7 % (32.4-45.2); HEMOGLOBIN 8.6 GM/dL (10.7-15.3); LYMPH % 14.9 % (8-40); MCH 25.1 pg (25.7-33.7); MEAN PLT VOLUME 8.1 fl (7.5-11.1); MONO % 10.2 % (3.8-10.2); NEUT % 73.3 % (42.8-82.8); PLATELET COUNT 229 10^3/uL (134-434); RBC 3.42 M/mm3 (3.60-5.2); RDW 16.2 % (11.6-15.6); WHITE BLOOD COUNT 6.5 K/mm3 (4.0-10.0)
[2024-09-01 09:33] LABS: POTASSIUM 4.1 mmol/L (3.5-5.1)
[2024-09-01 09:41] LABS: BLOOD UREA NITROGEN 22.5 mg/dL (7-18); CALCIUM 10.6 mg/dL (8.5-10.1)
[2024-09-01 09:44] LABS: CREATININE 1.1 mg/dL (0.55-1.3)
[2024-09-01 19:19] LABS: INR 1.35 (0.83-1.09); PROTHROMBIN TIME (PATIENT) 15.4 SEC (9.7-13.0)
[2024-09-02 07:12] LABS: BASO % 0.3 % (0-2.0); EOS % 1.3 % (0-4.5); HEMOGLOBIN 8.5 GM/dL (10.7-15.3); LYMPH % 17.5 % (8-40); MCH 24.9 pg (25.7-33.7); MCHC 30.5 g/dl (32.0-36.0); MEAN CELL VOLUME 81.6 fl (80-96); MEAN PLT VOLUME 8.1 fl (7.5-11.1); MONO % 9.3 % (3.8-10.2); NEUT % 71.6 % (42.8-82.8); PLATELET COUNT 219 10^3/uL (134-434); RBC 3.43 M/mm3 (3.60-5.2); RDW 16.1 % (11.6-15.6); WHITE BLOOD COUNT 6.2 K/mm3 (4.0-10.0)
[2024-09-02 07:31] LABS: CALCIUM 10.3 mg/dL (8.5-10.1)
[2024-09-02 07:32] LABS: BLOOD UREA NITROGEN 15.1 mg/dL (7-18)
[2024-09-02 07:35] LABS: CREATININE 1.1 mg/dL (0.55-1.3)
[2024-09-02 07:36] LABS: POTASSIUM 4.3 mmol/L (3.5-5.1)
[2024-09-02] MEDS: D5-1/2NS+20 MEQ KCL - 20 MEQ/1,000 ML INFUS.BAG IV SCH ×2 (09:44→21:49)
[2024-09-02] MEDS: IRON SUCROSE INJECTION 300 MG in SODIUM CHLORIDE 235 ML IVPB ONE (11:39)
[2024-09-02 16:00] VITALS: RESP 18
[2024-09-02] MEDS ORDERED: ACETAMINOPHEN 325 MG TABLET (FP) PO PRN (19:45)
[2024-09-02] MEDS: METOPROLOL TARTRATE 25 MG TABLET (FP) PO SCH (21:49)
[2024-09-02] MEDS: LIDOCAINE PATCH REMOVAL MC SCH (21:50)
[2024-09-02] MEDS ORDERED: LIDOCAINE PATCH REMOVAL MC SCH (22:00)
[2024-09-03 09:10] LABS: BASO % 0.3 % (0-2.0); EOS % 1.7 % (0-4.5); HEMOGLOBIN 8.8 GM/dL (10.7-15.3); MCH 25.6 pg (25.7-33.7); MCHC 31.5 g/dl (32.0-36.0); MEAN CELL VOLUME 81.2 fl (80-96); MEAN PLT VOLUME 8.2 fl (7.5-11.1); MONO % 9.6 % (3.8-10.2); NEUT % 71.4 % (42.8-82.8); PLATELET COUNT 223 10^3/uL (134-434); RBC 3.45 M/mm3 (3.60-5.2); RDW 16.7 % (11.6-15.6)
[2024-09-03 09:27] LABS: POTASSIUM 4.9 mmol/L (3.5-5.1)
[2024-09-03 09:31] LABS: BLOOD UREA NITROGEN 14.2 mg/dL (7-18); CALCIUM 10.3 mg/dL (8.5-10.1)
[2024-09-03] MEDS: CINACALCET HCL 30 MG TAB (FP) PO SCH (10:14)
[2024-09-03] MEDS: PANTOPRAZOLE 40 MG TABLET PO SCH (10:14)
[2024-09-03] MEDS: LOSARTAN POTASSIUM 50 MG TABLET PO SCH (10:14)
[2024-09-03] MEDS: MEMANTINE HCL 5 MG TABLET (UD) PO SCH (10:15)
[2024-09-03] MEDS: AMIODARONE HCL 100 MG TABLET PO SCH (10:15)
[2024-09-03] MEDS: LIDOCAINE 5% TOPICAL PATCH TP SCH (10:15)
[2024-09-03] MEDS: WARFARIN NA 2.5 MG TABLET PO SCH (17:42)
[2024-09-04 10:39] VITALS: BP 108/70; PULSE 95; TEMP 98.2
== END 2024-09-04 11:19 | disposition home or self-care (01) | DRG 683 ==
LOC: JER 17:50 → JERBED 08-31 00:41 → J4W 08-31 23:38 → J6S 09-02 19:38
PROVIDERS: ADMIT Internal Medicine; ATTEND Internal Medicine
DX: N17.9 Acute kidney failure, unspecified (principal); I50.32 Chronic diastolic (congestive) heart failure; I69.354 Hemiplegia and hemiparesis following cerebral infarction affecting left non-dominant side; M62.82 Rhabdomyolysis; I11.0 Hypertensive heart disease with heart failure; I48.91 Unspecified atrial fibrillation; Z79.01 Long term (current) use of anticoagulants; W19.XXXA Unspecified fall, initial encounter; Y93.89 Activity, other specified; Y92.89 Other specified places as the place of occurrence of the external cause; Y99.8 Other external cause status; I34.0 Nonrheumatic mitral (valve) insufficiency
CPT/HCPCS: 0241U-QW; 36415; 70450-TC; 71045-TC-FY; 72125-TC; 72128-TC; 72131-TC; 72170-TC-FY; 73502-TC-RT-FY; 73610-TC-RT-FY; 73630-TC-RT-FY; 73700-TC-RT; 74177-TC; 80048; 80053; 81003; 82272; 82550; 82553; 82728; 82962; 83540; 83550; 83735; 84484; 85025; 85610; 85730; 86850; 86900; 86901; 87086; 87186; 93005; 93010; 97116-GP; 97162-GP; 99285-25; J0131; J1756; Q9967

== ENCOUNTER 2024-11-08 16:10 | Inpatient (IN) | payer OTHER ==
[2024-11-08] MEDS ORDERED: carBAMazepine 100 MG TAB.CHEW PO SCH (17:30)
[2024-11-08 18:49] LABS: HEMATOCRIT 43.5 % (34.1-44.9); HEMOGLOBIN 13.6 g/dL (11.2-15.7); MCHC 31.3 g/dl (32.2-35.5); MEAN CELL VOLUME 87.5 fl (79.4-94.8); MEAN PLT VOLUME 10.4 fl (9.4-12.3); PLATELET COUNT # 225 x10^3/uL (182-369); RDW 19.4 % (12.5-17.0)
[2024-11-08 19:02] LABS: INR 1.35 (0.83-1.09); PROTHROMBIN TIME (PATIENT) 14.9 SEC (9.7-13.0)
[2024-11-08 19:10] LABS: CHLORIDE 93 mmol/L (98-107); SODIUM 140 mmol/L (136-145)
[2024-11-08 19:13] LABS: ALBUMIN 4.5 g/dl (3.4-5.0); CALCIUM 11.4 mg/dL (8.5-10.1)
[2024-11-08 19:14] LABS: ANION GAP 14 mmol/L (4-13); BLOOD UREA NITROGEN 39.6 mg/dL (7-18); CO2 34 mmol/L (21-32); GLUCOSE,RANDOM 84 mg/dL (74-106); MAGNESIUM 2.1 mg/dL (1.8-2.4)
[2024-11-08 19:17] LABS: CREATININE 1.8 mg/dL (0.55-1.3); SGOT/AST 95 U/L (15-37); SGPT/ALT 20 U/L (13-61)
[2024-11-08 19:19] LABS: BILIRUBIN,TOTAL 1.4 mg/dL (0.2-1)
[2024-11-08 19:20] LABS: ALK PHOS 78 U/L (45-117); TOT PROT 7.7 g/dl (6.4-8.2)
[2024-11-08 19:33] LABS: LACTIC ACID 3.9 mmol/L (0.4-2.0)
[2024-11-08] MEDS ORDERED: ASPIRIN 81 MG CHEWABLE TABLETS ONE (21:21)
[2024-11-08] MEDS: SODIUM CHLORIDE 0.9% 500 ML INFUS.BAG IV ONE (21:32)
[2024-11-08] MEDS: ASPIRIN 81 MG CHEWABLE TABLETS PO ONE (22:08)
[2024-11-08] MEDS ORDERED: ASPIRIN 300 MG SUPP.RECT RC ONE (23:12)
[2024-11-08] MEDS: ASPIRIN 300 MG SUPP.RECT RC ONE (23:15)
[2024-11-09 00:09] LABS: LACTIC ACID 3.1 mmol/L (0.4-2.0)
[2024-11-09] MEDS: SODIUM CHLORIDE 0.9% 500 ML INFUS.BAG IV ONE (01:00)
[2024-11-09] MEDS ORDERED: ACETAMINOPHEN 325 MG TABLET (FP) PO PRN ×2 (02:02→20:06)
[2024-11-09] MEDS ORDERED: POTASSIUM CHLORIDE ORAL LIQUID 20 MEQ/15 ML ONE (03:24)
[2024-11-09] MEDS ORDERED: PANTOPRAZOLE 40 MG TABLET PO ONE ×2 (03:24→08:52)
[2024-11-09] MEDS ORDERED: carBAMazepine 200 MG TABLET ONE ×3 (03:34→11:35)
[2024-11-09] MEDS: POTASSIUM CHLORIDE ORAL LIQUID 20 MEQ/15 ML PO ONE (03:51)
[2024-11-09] MEDS: PANTOPRAZOLE 40 MG TABLET PO SCH (03:51)
[2024-11-09] MEDS: carBAMazepine 200 MG TABLET PO SCH (03:51)
[2024-11-09] MEDS: D5-1/2NS+20 MEQ KCL - 20 MEQ/1,000 ML INFUS.BAG IV SCH ×4 (04:12→21:00)
[2024-11-09 05:02] LABS: EPI CELLS >36 /uL (0-25.1); HYALINE CASTS 3 /uL (0-3.1); URINE APPEARANCE CLOUDY; URINE BACTERIA 7445 /uL (0-1359); URINE BILIRUBIN NEGATIVE (NEGATIVE); URINE COLOR YELLOW; URINE GLUCOSE (UA) NEGATIVE (NEGATIVE); URINE KETONE TRACE (NEGATIVE); URINE LEUK ESTERASE 2+ (NEGATIVE); URINE NITRITE NEGATIVE (NEGATIVE); URINE PROTEIN 1+ (NEGATIVE); URINE RBC 48 /uL (0-23.9); URINE WBC 340 /uL (0-25.8)
[2024-11-09] MEDS ORDERED: LOSARTAN POTASSIUM 50 MG TABLET ONE (08:52)
[2024-11-09] MEDS ORDERED: METOPROLOL TARTRATE 25 MG TABLET (FP) ONE (08:52)
[2024-11-09] MEDS ORDERED: LIDOCAINE 5% TOPICAL PATCH ONE (08:53)
[2024-11-09] MEDS ORDERED: D5-1/2NS+20 MEQ KCL - 20 MEQ/1,000 ML INFUS.BAG IV SCH (08:57)
[2024-11-09] MEDS: LIDOCAINE 5% TOPICAL PATCH TP SCH (09:07)
[2024-11-09] MEDS: METOPROLOL TARTRATE 25 MG TABLET (FP) PO SCH ×2 (09:07→22:01)
[2024-11-09] MEDS: LOSARTAN POTASSIUM 50 MG TABLET PO SCH (09:07)
[2024-11-09 11:29] LABS: HEMATOCRIT 44.4 % (34.1-44.9); HEMOGLOBIN 13.7 g/dL (11.2-15.7); MCHC 30.9 g/dl (32.2-35.5); MEAN CELL VOLUME 88.4 fl (79.4-94.8); MEAN PLT VOLUME 10.3 fl (9.4-12.3); PLATELET COUNT # 167 x10^3/uL (182-369); RDW 19.6 % (12.5-17.0)
[2024-11-09 11:48] LABS: POTASSIUM 3.4 mmol/L (3.5-5.1)
[2024-11-09 11:49] LABS: CALCIUM 10.1 mg/dL (8.5-10.1)
[2024-11-09 11:53] LABS: CREATININE 1.4 mg/dL (0.55-1.3)
[2024-11-09] MEDS: SODIUM CHLORIDE 500 ML IV STA (12:46)
[2024-11-09] MEDS ORDERED: CEFTRIAXONE 1 G/50 ML PREMIX 50 ML IVPB ONE (14:05)
[2024-11-09] MEDS: CEFTRIAXONE 1 G/50 ML PREMIX 50 ML IVPB SCH (14:28)
[2024-11-09] MEDS ORDERED: NOREPINEPHRINE BITARTRATE 4 MG/4 ML ML IV ONE (14:30)
[2024-11-09] MEDS: NOREPINEPHRINE BITARTRATE 4,000 MCG in DEXTROSE 5%-WATER - 496 ML IV SCH ×2 (14:42→21:01)
[2024-11-09] MEDS: SODIUM CHLORIDE 1,000 ML IV STA (14:51)
[2024-11-09] MEDS: WARFARIN NA 2.5 MG TABLET PO SCH (18:42)
[2024-11-09] MEDS ORDERED: MUPIROCIN 2% TOPICAL OINTMENT FOR DECOLONIZATION NS SCH ×2 (22:00)
[2024-11-09] MEDS ORDERED: LIDOCAINE PATCH REMOVAL MC SCH ×2 (22:00)
[2024-11-09] MEDS ORDERED: CHLORHEXIDINE GLUCONATE 4% CLEANSER FOR DECOLONIZATION TP SCH (22:00)
[2024-11-09] MEDS: MUPIROCIN 2% TOPICAL OINTMENT FOR DECOLONIZATION NS SCH (22:01)
[2024-11-09] MEDS: CHLORHEXIDINE GLUCONATE 4% CLEANSER FOR DECOLONIZATION TP SCH (22:01)
[2024-11-10] MEDS: LACTATED RINGERS SOLUTION 1000 ML INFUS.BAG IV ONE ×2 (00:35→02:24)
[2024-11-10] MEDS: VANCOMYCIN/WATER FOR INJ (PEG) 1,000 MG/200 ML BAG IVPB ONE (01:35)
[2024-11-10] MEDS: LIDOCAINE PATCH REMOVAL MC SCH (04:53)
[2024-11-10 09:57] LABS: ABSOLUTE IMMATURE GRANULOCYTES 0.07 x10^3/uL (0.0-0.031); BASOPHILS # 0.02 x10^3/uL (0.01-0.08); EOSINOPHIL % 0.3 % (0.7-5.8); EOSINOPHILS # 0.02 x10^3/uL (0.04-0.36); HEMATOCRIT 38.8 % (34.1-44.9); HEMOGLOBIN 11.9 g/dL (11.2-15.7); MCHC 30.7 g/dl (32.2-35.5); MEAN CELL VOLUME 89.6 fl (79.4-94.8); MEAN PLT VOLUME 10.9 fl (9.4-12.3); MONOCYTE # 0.19 x10^3/uL (0.24-0.86); MONOCYTE % 2.6 % (4.7-12.5); PLATELET COUNT # 147 x10^3/uL (182-369)
[2024-11-10] MEDS: carBAMazepine 200 MG TABLET PO SCH (09:57)
[2024-11-10] MEDS: CEFTRIAXONE 1 G/50 ML PREMIX 50 ML IVPB SCH (09:57)
[2024-11-10] MEDS: PANTOPRAZOLE 40 MG TABLET PO SCH (09:58)
[2024-11-10] MEDS: LIDOCAINE 5% TOPICAL PATCH TP SCH (09:58)
[2024-11-10] MEDS ORDERED: LOSARTAN POTASSIUM 50 MG TABLET PO SCH (10:00)
[2024-11-10 10:21] LABS: POTASSIUM 3.9 mmol/L (3.5-5.1)
[2024-11-10 10:23] LABS: CALCIUM 8.8 mg/dL (8.5-10.1)
[2024-11-10 10:24] LABS: BLOOD UREA NITROGEN 22.5 mg/dL (7-18)
[2024-11-10] MEDS: LACTATED RINGERS SOLUTION 1,000 ML/1,000 ML INFUS.BAG IV STA (12:16)
[2024-11-10] MEDS: MIDODRINE HCL 5 MG TABLET PO ONE (16:22)
[2024-11-10] MEDS: LACTATED RINGERS SOLUTION 1,000 ML/1,000 ML INFUS.BAG IV ONE (16:22)
[2024-11-10] MEDS: WARFARIN NA 2.5 MG TABLET PO SCH (17:34)
[2024-11-10] MEDS: MIDODRINE HCL 5 MG TABLET PO SCH ×2 (17:35→22:07)
[2024-11-11 08:10] LABS: POTASSIUM 3.9 mmol/L (3.5-5.1)
[2024-11-11 08:24] LABS: BLOOD UREA NITROGEN 15.4 mg/dL (7-18); MAGNESIUM 1.3 mg/dL (1.8-2.4)
[2024-11-11 08:27] LABS: CREATININE 0.8 mg/dL (0.55-1.3)
[2024-11-11 08:28] LABS: PHOSPHOROUS 1.3 mg/dL (2.5-4.9)
[2024-11-11 08:29] LABS: BILIRUBIN,TOTAL 0.4 mg/dL (0.2-1)
[2024-11-11 08:31] LABS: ALBUMIN 2.4 g/dl (3.4-5.0); TOT PROT 4.8 g/dl (6.4-8.2)
[2024-11-11 09:17] LABS: HEMATOCRIT 37.6 % (34.1-44.9); HEMOGLOBIN 11.8 g/dL (11.2-15.7); MCHC 31.4 g/dl (32.2-35.5); MEAN CELL VOLUME 88.5 fl (79.4-94.8); MEAN PLT VOLUME 12.2 fl (9.4-12.3); PLATELET COUNT # 119 x10^3/uL (182-369); RDW 20.4 % (12.5-17.0)
[2024-11-11] MEDS: MAGNESIUM 1GM/D5W - 1 GM/100 ML IVPB IVPB ONE (09:45)
[2024-11-11] MEDS: NAPH,MB-DB/K PH,MBDB POWDER PACKET PO ONE (09:45)
[2024-11-11] MEDS: MAGNESIUM SULF 50% (8.12 MEQ/2 ML-1 GM VIAL) IVPB ONE (12:10)
[2024-11-11] MEDS: POTASSIUM PHOSPHATE 30 MM in SODIUM CHLORIDE 250 ML IVPB ONE (12:11)
[2024-11-11] MEDS: CHOLECALCIFEROL (VIT D3) 5000 UNITS (125 MCG) CAP PO SCH (12:11)
[2024-11-11] MEDS: MULTIVITAMINS THER W-MINERALS COMBO TABLET (FP) PO SCH (12:11)
[2024-11-11] MEDS: ASCORBIC ACID 500 MG TABLET (FP) PO SCH (12:11)
[2024-11-11] MEDS: LACTATED RINGERS SOLUTION 1,000 ML/1,000 ML INFUS.BAG IV SCH (16:30)
[2024-11-11] MEDS: ALBUMIN HUMAN 5% 500 ML IV SOLUTION IV ONE (16:55)
[2024-11-11] MEDS: MAGNESIUM SULFATE IN WATER 2 GM/50 ML IVPB IVPB SCH (21:59)
[2024-11-11] MEDS: POTASSIUM PHOSPHATE 30 MM in SODIUM CHLORIDE 500 ML IVPB ONE (23:09)
[2024-11-12] MEDS ORDERED: LIDOCAINE PATCH REMOVAL MC SCH (05:25)
[2024-11-12] MEDS ORDERED: ACETAMINOPHEN 325 MG TABLET (FP) PO PRN (05:25)
[2024-11-12 06:56] LABS: ABSOLUTE IMMATURE GRANULOCYTES 0.03 x10^3/uL (0.0-0.031); BASOPHILS # 0.01 x10^3/uL (0.01-0.08); EOSINOPHIL % 0.5 % (0.7-5.8); EOSINOPHILS # 0.03 x10^3/uL (0.04-0.36); HEMATOCRIT 32.4 % (34.1-44.9); HEMOGLOBIN 10.3 g/dL (11.2-15.7); MCHC 31.8 g/dl (32.2-35.5); MEAN PLT VOLUME 10.7 fl (9.4-12.3); PLATELET COUNT # 112 x10^3/uL (182-369); RDW 20.5 % (12.5-17.0)
[2024-11-12 07:26] LABS: POTASSIUM 4.4 mmol/L (3.5-5.1)
[2024-11-12 07:29] LABS: ALBUMIN 2.9 g/dl (3.4-5.0); BLOOD UREA NITROGEN 10.2 mg/dL (7-18); CALCIUM 8.8 mg/dL (8.5-10.1); MAGNESIUM 1.8 mg/dL (1.8-2.4)
[2024-11-12 07:33] LABS: CREATININE 0.7 mg/dL (0.55-1.3); PHOSPHOROUS 3.3 mg/dL (2.5-4.9)
[2024-11-12 07:34] LABS: BILIRUBIN,TOTAL 0.5 mg/dL (0.2-1)
[2024-11-12 07:35] LABS: TOT PROT 4.9 g/dl (6.4-8.2)
[2024-11-12] MEDS: carBAMazepine 200 MG TABLET PO SCH (08:04)
[2024-11-12] MEDS: MAGNESIUM 2GM/50ML STERILE WATER IVPB IVPB ONE (08:04)
[2024-11-12] MEDS: LACTATED RINGERS SOLUTION 1,000 ML/1,000 ML INFUS.BAG IV SCH ×2 (08:05→22:21)
[2024-11-12] MEDS: LIDOCAINE 5% TOPICAL PATCH TP SCH (09:12)
[2024-11-12] MEDS: CEFTRIAXONE 1 G/50 ML PREMIX 50 ML IVPB SCH (09:14)
[2024-11-12] MEDS: PANTOPRAZOLE 40 MG TABLET PO SCH (09:15)
[2024-11-12] MEDS: MIDODRINE HCL 5 MG TABLET PO SCH ×2 (09:15→17:26)
[2024-11-12] MEDS: WARFARIN NA 2.5 MG TABLET PO SCH (17:26)
[2024-11-12] MEDS: LIDOCAINE PATCH REMOVAL MC SCH (22:21)
[2024-11-13 07:55] LABS: HEMOGLOBIN 11.2 g/dL (11.2-15.7); MEAN CELL VOLUME 87.3 fl (79.4-94.8); MEAN PLT VOLUME 10.5 fl (9.4-12.3); PLATELET COUNT # 100 x10^3/uL (182-369)
[2024-11-13 08:12] LABS: POTASSIUM 4.4 mmol/L (3.5-5.1)
[2024-11-13 08:14] LABS: BLOOD UREA NITROGEN 9.6 mg/dL (7-18)
[2024-11-13 08:18] LABS: CREATININE 0.7 mg/dL (0.55-1.3)
[2024-11-13] MEDS: LACTATED RINGERS SOLUTION 1,000 ML/1,000 ML INFUS.BAG IV SCH (12:32)
[2024-11-13] MEDS: METOPROLOL TARTRATE 25 MG TABLET (FP) PO SCH (21:38)
[2024-11-14 08:29] LABS: POTASSIUM 4.7 mmol/L (3.5-5.1)
[2024-11-14 08:32] LABS: CALCIUM 9.2 mg/dL (8.5-10.1)
[2024-11-14 08:34] LABS: BLOOD UREA NITROGEN 10.1 mg/dL (7-18)
[2024-11-14 08:36] LABS: CREATININE 0.7 mg/dL (0.55-1.3)
[2024-11-14 08:46] LABS: ABSOLUTE IMMATURE GRANULOCYTES 0.02 x10^3/uL (0.0-0.031); BASOPHILS # 0.02 x10^3/uL (0.01-0.08); EOSINOPHIL % 0.4 % (0.7-5.8); EOSINOPHILS # 0.02 x10^3/uL (0.04-0.36); HEMATOCRIT 34.7 % (34.1-44.9); HEMOGLOBIN 11.2 g/dL (11.2-15.7); MCHC 32.3 g/dl (32.2-35.5); MEAN CELL VOLUME 88.7 fl (79.4-94.8); MEAN PLT VOLUME 11.8 fl (9.4-12.3); MONOCYTE # 0.58 x10^3/uL (0.24-0.86); MONOCYTE % 11.6 % (4.7-12.5); PLATELET COUNT # 98 x10^3/uL (182-369); RDW 20.9 % (12.5-17.0)
[2024-11-14] MEDS: LOSARTAN POTASSIUM 50 MG TABLET PO SCH (09:11)
[2024-11-14 14:49] VITALS: BMI 19.5
[2024-11-15] MEDS: LACTATED RINGERS SOLUTION 1,000 ML/1,000 ML INFUS.BAG IV SCH ×2 (10:53→17:54)
[2024-11-15 15:12] VITALS: RESP 18
[2024-11-15] MEDS: WARFARIN NA 2.5 MG TABLET PO SCH (17:55)
[2024-11-15] MEDS: LIDOCAINE PATCH REMOVAL MC SCH ×2 (22:06→22:07)
[2024-11-15] MEDS: METOPROLOL TARTRATE 25 MG TABLET (FP) PO SCH (22:06)
[2024-11-15] MEDS: ASCORBIC ACID 500 MG TABLET (FP) PO SCH (22:06)
[2024-11-16] MEDS: MELATONIN 5 MG TABLETS PO SCH (00:17)
[2024-11-16] MEDS: ACETAMINOPHEN 325 MG TABLET (FP) PO PRN (00:17)
[2024-11-16 05:57] VITALS: PULSE 55
[2024-11-16] MEDS: LOSARTAN POTASSIUM 50 MG TABLET PO SCH (10:41)
[2024-11-16] MEDS: MULTIVITAMINS THER W-MINERALS COMBO TABLET (FP) PO SCH (10:41)
[2024-11-16] MEDS: PANTOPRAZOLE 40 MG TABLET PO SCH (10:42)
[2024-11-16] MEDS: LIDOCAINE 5% TOPICAL PATCH TP SCH (10:43)
[2024-11-16] MEDS: CHOLECALCIFEROL (VIT D3) 5000 UNITS (125 MCG) CAP PO SCH (10:44)
[2024-11-16] MEDS: LACTATED RINGERS SOLUTION 1,000 ML/1,000 ML INFUS.BAG IV SCH (10:44)
[2024-11-16 13:23] LABS: ABSOLUTE IMMATURE GRANULOCYTES 0.03 x10^3/uL (0.0-0.031); BASOPHILS # 0.01 x10^3/uL (0.01-0.08); EOSINOPHIL % 1.7 % (0.7-5.8); EOSINOPHILS # 0.07 x10^3/uL (0.04-0.36); HEMATOCRIT 35.2 % (34.1-44.9); HEMOGLOBIN 10.9 g/dL (11.2-15.7); MEAN CELL VOLUME 88.7 fl (79.4-94.8); MEAN PLT VOLUME 10.2 fl (9.4-12.3); MONOCYTE # 0.47 x10^3/uL (0.24-0.86); MONOCYTE % 11.6 % (4.7-12.5); PLATELET COUNT # 148 x10^3/uL (182-369); RDW 21.6 % (12.5-17.0)
[2024-11-16 13:57] LABS: POTASSIUM 3.9 mmol/L (3.5-5.1)
[2024-11-16 13:59] LABS: CALCIUM 9.8 mg/dL (8.5-10.1)
[2024-11-16 14:00] LABS: ALBUMIN 2.7 g/dl (3.4-5.0); BLOOD UREA NITROGEN 11.4 mg/dL (7-18)
[2024-11-16 14:03] LABS: CREATININE 0.8 mg/dL (0.55-1.3)
[2024-11-16 14:04] LABS: BILIRUBIN,TOTAL 0.4 mg/dL (0.2-1); TOT PROT 5.2 g/dl (6.4-8.2)
[2024-11-16 14:28] VITALS: BP 118/69; TEMP 98.4
== END 2024-11-16 17:08 | DRG 871 ==
LOC: JER 16:10 → JERBED 11-09 00:06 → OBSVTOIN 11-09 01:56 → J4W 11-09 14:01 → JERBED 11-09 14:01 → JICU 11-09 15:47 → J4W 11-11 16:28 → J5S 11-15 16:34
PROVIDERS: ADMIT Internal Medicine; ATTEND Internal Medicine
DX: A41.89 Other specified sepsis (principal); R65.21 Severe sepsis with septic shock; I50.32 Chronic diastolic (congestive) heart failure; M62.82 Rhabdomyolysis; N17.9 Acute kidney failure, unspecified; E44.0 Moderate protein-calorie malnutrition; Z68.1 Body mass index [BMI] 19.9 or less, adult; E87.20 Acidosis, unspecified; I69.354 Hemiplegia and hemiparesis following cerebral infarction affecting left non-dominant side; G47.00 Insomnia, unspecified; I11.0 Hypertensive heart disease with heart failure; M25.511 Pain in right shoulder; I48.91 Unspecified atrial fibrillation; E86.0 Dehydration; R55 Syncope and collapse; R29.6 Repeated falls; E83.42 Hypomagnesemia; I08.1 Rheumatic disorders of both mitral and tricuspid valves; E83.39 Other disorders of phosphorus metabolism; E87.6 Hypokalemia; D69.6 Thrombocytopenia, unspecified; F03.90 Unspecified dementia, unspecified severity, without behavioral disturbance, psychotic disturbance, mood disturbance, and anxiety; L89.110 Pressure ulcer of right upper back, unstageable; W05.0XXA Fall from non-moving wheelchair, initial encounter; Y92.122 Bedroom in nursing home as the place of occurrence of the external cause; Y99.9 Unspecified external cause status
CPT/HCPCS: 0241U-QW; 36415; 70450-TC; 71045-TC-FY; 72125-TC; 72170-TC-FY; 73030-TC-RT-FY; 80048; 80053; 81003; 82550; 82553; 82728; 82962; 83540; 83550; 83605; 83735; 84100; 84484; 85025; 85027; 85610; 85730; 87040; 87086; 93005; 93010; 93306-TC; 97116-GP; 97162-GP; 99285-25; G0378